=== PATIENT | male | born 1990 | race Caucasian/White ===

== ENCOUNTER → 2016-08-11 | Outpatient (CLI) | payer SELFPAY | LOC: EMS 23:03 | DX: Z53.20 Procedure and treatment not carried out because of patient's decision for unspecified reasons (principal) ==

== ENCOUNTER 2016-08-12 21:41 | Emergency (ER) | payer MEDICAID ==
[~2016-08-12] VITALS: Ht 182.9 cm; Wt 68.1 kg
[2016-08-12] MEDS ORDERED: PROPARACAINE 0.5% OD ONE (22:00)
[2016-08-12] MEDS ORDERED: FLUORESCEIN (FLUOR-I-STRIPS) 1 MG STRIP OD ONE (22:00)
[2016-08-12] MEDS ORDERED: FLUORESCEIN (FLUOR-I-STRIPS) 1 MG STRIP ONE (22:03)
[2016-08-12] MEDS ORDERED: ERYTHROMYCIN 0.5% OPHTHALMIC OINTMENT 1 GM TUBE OD ONE (22:25)
[2016-08-12 22:47] VITALS: BP 120/74
== END 2016-08-12 22:48 | disposition home or self-care (01) ==
LOC: ED 21:43
DX: T15.02XA Foreign body in cornea, left eye, initial encounter (principal); W22.8XXA Striking against or struck by other objects, initial encounter; Y92.63 Factory as the place of occurrence of the external cause; Y99.0 Civilian activity done for income or pay
CPT/HCPCS: 99283; A9270; 65220

== ENCOUNTER 2016-08-13 02:17 | Emergency (ER) | payer MEDICAID ==
[~2016-08-13] VITALS: Ht 182.9 cm; Wt 68.1 kg
--- NOTE | 2016-08-13 02:29 | NUR ---
NOT ABLE TO DO VISUAL ACUITY THIS TIME D/T PT CRYING AND NOT ABLE TO OPEN EYE W/O PAIN
[2016-08-13] MEDS ORDERED: KETOROLAC 60 MG/2 ML (TORADOL) VIAL IM ONE (02:35)
[2016-08-13] MEDS ORDERED: PROPARACAINE 0.5% OD ONE (02:35)
[2016-08-13] MEDS ORDERED: DICLOFENAC 0.1% OD ONE (02:40)
[2016-08-13] MEDS ORDERED: PROMETHAZINE 25 MG/ML (PHENERGAN) 1 ML VIAL IM ONE (02:50)
[2016-08-13] MEDS ORDERED: HYDROmorphone 1 MG/ML (DILAUDID) SYRINGE IM ONE (02:50)
--- NOTE | 2016-08-13 03:18 | NUR ---
PATIENT SLEEPING AT BEDSIDE
--- NOTE | 2016-08-13 03:18 | NUR ---
DILAUDID AND PHENERGAN GIVEN IM SO NO START STOP TIMES FOR IV
[2016-08-13] MEDS ORDERED: ED- HYDROcodone/ACETAMINOPHEN 5MG/325MG (NORCO) 6 TABLETS/BTL PO ONE (03:45)
[2016-08-13 04:05] VITALS: BP 116/62
--- NOTE | 2016-08-13 04:06 | NUR ---
ENC IMPORTANCE OF NOT RUBBING EYE TO BOTH THE PATIENT AND HIS .
== END 2016-08-13 04:06 | disposition home or self-care (01) ==
LOC: ED 02:18
DX: S05.02XA Injury of conjunctiva and corneal abrasion without foreign body, left eye, initial encounter (principal); W22.8XXA Striking against or struck by other objects, initial encounter; Y92.63 Factory as the place of occurrence of the external cause; Y99.0 Civilian activity done for income or pay
CPT/HCPCS: 96372; 99283; A9270; J1170; J1885; J2550

== ENCOUNTER 2016-08-13 10:56 | Emergency (ER) | payer MEDICAID ==
[~2016-08-13] VITALS: Ht 182.9 cm; Wt 68.1 kg
[2016-08-13] MEDS ORDERED: FLUORESCEIN (FLUOR-I-STRIPS) 1 MG STRIP OS ONE (11:15)
[2016-08-13] MEDS ORDERED: EYE WASH 120 ML BTL OD ONE (11:25)
[2016-08-13 19:00] VITALS: BP 130/67
== END 2016-08-13 11:58 | disposition home or self-care (01) ==
LOC: ED 10:57
DX: S05.02XA Injury of conjunctiva and corneal abrasion without foreign body, left eye, initial encounter (principal); W22.8XXA Striking against or struck by other objects, initial encounter; Y92.63 Factory as the place of occurrence of the external cause; Y99.0 Civilian activity done for income or pay
CPT/HCPCS: 99283; A9270; 99282

== ENCOUNTER 2016-08-24 15:47 | Emergency (ER) | payer MEDICAID ==
[~2016-08-24] VITALS: Ht 182.9 cm; Wt 68.0 kg
[2016-08-24 16:28] LABS: BASOPHILS % (AUTO) 0 % (0-2); EOSINOPHILS % (AUTO) 0 % (0-4); LYMPHOCYTES # (AUTO) 1.4 X10^3; MEAN CORPUSCULAR HEMOGLOBIN 33.6 PG (26.0-34.0); MEAN CORPUSCULAR HGB CONC 36.6 g/dL (31.0-37.0); MEAN CORPUSCULAR VOLUME 92 FL (80-100); MEAN PLATELET VOLUME 9.2 FL (6.0-9.5); MONOCYTES # (AUTO) 0.4 X10^3; MONOCYTES % (AUTO) 8 % (3-11); NEUTROPHILS # (AUTO) 3.4 X10^3; NEUTROPHILS % (AUTO) 64 % (51-67); PLATELET COUNT 190 10^3uL (150-450); WHITE BLOOD COUNT 5.22 10^3uL (4.0-11.0)
[2016-08-24 16:35] LABS: BILIRUBIN,URINE Negative (Negative); COLOR,URINE Yellow; GLUCOSE, URINE (UA) Negative (Negative); LEUKOCYTE ESTERASE ,URINE Negative (Negative); PH,URINE 8.5 (5.0 - 8.0)
[2016-08-24 16:36] LABS: CLARITY,URINE Cloudy
[2016-08-24 16:39] LABS: ALBUMIN 4.6 g/dL (3.4-5.0); ALKALINE PHOSPHATASE 82 U/L (38-126); ANION GAP 14.4 MEQ/L (3-15); BUN/CREATININE RATIO 16 (10-20); CALCULATED IONIZED CALCIUM 3.9 mg/dL (3.8-4.6); TOTAL PROTEIN 7.6 g/dL (6.4-8.5)
[2016-08-24 16:49] LABS: AMORPHOUS SEDIMENT,UR 4+ /HPF; RBC,URINE None Seen /HPF; URINE CENTRIFUGED VOLUME 12 mL
[2016-08-24 16:50] LABS: AMPHETAMINE SCREEN, URINE Negative (Negative); CANNABINOID SCREEN, URINE Negative (Negative); METHAMPHETAMINE SCREEN URINE S NEGATIVE (NEGATIVE); OPIATE SCREEN URINE Negative (Negative); PROPOXYPHENE STAT NEGATIVE (NEGATIVE)
--- NOTE | 2016-08-24 16:59 | NUR ---
PAM PARKER (SHELDON) CALLED FOR CODE TO TELE-SCREEN PT. SHELDON HAD CALLED DAIRY TRUCK DRIVER OF PT TO INFORM THIS RN THAT PT HAD CALLED & HE TALKED TO HIM AT LONG LENGTH. SHELDON STATES THAT HE IS "VERY WORRIED ABOUT HIM" AND "HE IS SUICIDAL WITH A PLAN & NEEDS IN-PT TX". HE CONTINUES THAT HE HAD BEEN AT [facility] FOR "BRIEF STAY". SHELDON STATES [facility] IS FULL & UNABLE TO TAKE PT. "IF [facility] OR [facility] ARE UNABLE TO TAKE PT, CALL ME BACK." PT STATES HE DOES NOT WANT TO GO TO [facility] "THERE ARE BAD PEOPLE THERE" BUT OK WITH GOING TO [facility]. CL
--- NOTE | 2016-08-24 17:20 | NUR ---
[facility] weed control inspector psychologist called re poss tsf to their facility after being medically cleared here. cl
--- NOTE | 2016-08-24 18:18 | NUR ---
CAYLA MILLER SENT BACK ADMIT PAPERWORK & THEIR NURSE WILL CALL US BACK FOR NURSE TO NS REPORT. MARIANO SHARMA SWEDISH MASSEUSE STATES SHE DOES NOT NEED TO HAVE DOCTOR TO DOCTOR CALL. CL
[2016-08-24 19:33] VITALS: BP 88/44
== END 2016-08-24 18:54 ==
LOC: ED 15:49
DX: F33.2 Major depressive disorder, recurrent severe without psychotic features (principal)
CPT/HCPCS: 36415; 80053; 80177; 81003; 81015; 84443; 85025; 99283; G0478; G0480; 80307; 80320; 80329

== ENCOUNTER → 2016-08-24 | Outpatient (CLI) | payer MEDICAID | LOC: EMS 15:45 | PROVIDERS: ATTEND Psychiatry & Neurology Psychiatry | DX: R45.851 Suicidal ideations (principal) ==

== ENCOUNTER 2016-09-04 19:09 | Emergency (ER) | payer MEDICAID ==
[~2016-09-04] VITALS: Ht 182.9 cm; Wt 69.5 kg
[~2016-09-04 19:09] MED LIST changes: -QTP25T PO; -QUET200T2 PO; -SERT25TA PO; -TRAZ100T92 PO
--- OUTSIDE RECORDS SUMMARY | 2016-09-04 19:12 | XMS REPORT ---
Author Author GENERATED, SYSTEM Organization Unknown Address Unknown Phone Unavailable Care Team Providers Care Dental Resident Name Role Phone PP Unavailable Reason For Visit Reason for Visit from 04/22/2016 2:15 PM:Pt Stated Reason for Adm : OD on pillsReason for Visit from 04/22/2016 12:44 PM:Pt Stated Reason for Adm : "to get help with my anger" Chief Complaint UNSPECIFIED DEPRESSION Social History Social History from 04/24/2016 11:27 AM:Tobacco Use? : Current Everyday SmokerSocial History from 04/22/2016 2:15 PM:Tobacco Use? : Current Everyday SmokerSocial History from 04/22/2016 12:44 PM:Tobacco Use? : Current Everyday Smoker Functional Status Functional Status from 04/24/2016 8:30 AM:LOC : AlertOriented To : Person,Place, TimeWeight Bearing Status : FullAssist Level : Independent# Assists : IndependentFunctional Status from 04/23/2016 8:05 PM:LOC : AlertOriented To : Person,Place,Time,EventWeight Bearing Status : FullAssist Level : Independent# Assists : IndependentFunctional Status from 04/23/2016 9:00 AM:LOC : AlertOriented To : Person,Place,Time,EventWeight Bearing Status : FullAssist Level : Independent# Assists : IndependentFunctional Status from 04/22/2016 9: 30 PM:LOC : AlertOriented To : Person,Place,Time,EventWeight Bearing Status : FullAssist Level : Independent# Assists : IndependentFunctional Status from 12:44 PM:LOC : AlertOriented To : Person,Place,Time,EventWeight Bearing Status : FullAssist Level : Independent# Assists : Independent Vital Signs Hospital Vital Signs from 04/24/2016 7:16 AM:Weight : 63.1/ kgHeight : 5/8 ft, inTemperature : 98.1 FPulse : 58Respirations : 18BP : 104/53Hospital Vital Signs from 04/23/2016 9:12 AM:Height : 5/8 ft,inHospital Vital Signs from 2015 7:03 AM:Height : 5/8 ft,inTemperature : 97.9 FPulse : 67Respirations : 18BP : 100/51Hospital Vital Signs from 04/22/2016 9:47 PM:Height : 5/8 ft, inTemperature : 98.5 FPulse : 82Respirations : 18BP : 125/76Hospital Vital Signs from 04/22/2016 12:44 PM:Weight : 66.1/ kgHeight : 5/8 ft,inHospital Vital Signs from 04/22/2016 12:29 PM:Weight : 66.1/ kgHeight : 6/0 ft, inTemperature : 99.5 FPulse : 83Respirations : 18BP : 120/54 Results Chemistry from 04/23/2016 6:19 AMGLUCOSE (FASTING) 87 MG/DL (65-99 MG/DL) Problems Encounter Diagnosis Altered Mental Status Status:Active. Additional Problems Drug Overdose Comment:Problem resolved by [facility] upon Discharge, Status:Resolved. Fall Risk Comment:Problem resolved by [facility] upon Discharge, Status:Resolved. Seizure Comment:Problem resolved by [facility] upon Discharge, Status:Resolved. Encounters Encounter Diagnosis Altered Mental Status Status:Active. Plan of Care Follow-up Appointments from 04/24/2016 11:27 AM:#1 Office appointment: : Initial Intake and therapy-Vladimir Melton-with Alyce Root#1 Date/Time : 04/27 12:30 PMAddress # 1 : [phone] Office appointment: : Dr. Wang#2 Date/Time : 05/26/2016 10:45 AMAddress # 2 : [facility]: [address], [place]- or Procedures No relevant procedures performed. Immunizations No immunizations administered or ordered. Hospital Course Hospital Discharge Instructions How to care for yourself at home from 04/24/2016 11:27 AM:Discharge Activity : Activity as tolerated,Do not engage in sports, heavy work or heavy lifting until your physician gives permissionDo not drive or operate machinery for: : No driving until release from Dr Wu Diet : As before hospitalizationCall your doctor if: : Fever over 101 F or severe chills,Chest pain or other unexplained symptoms,Tingling or numbness develops,A sudden increase or decrease in weight,You have persistent or worsening symptoms Allergies, Adverse Reactions, Alerts No Latex Allergy.No IV Contrast Allergy.No Known Drug Allergies. Medication It is the responsibility of the patient or patient independent sales representative to confirm the list of medications with either the patient's personal care provider or the patient's follow-up care provider to ensure the patient has an appropriate list of medications to take at home. Discharge medicationsNew medicationsnicotine (polacrilex) (Nicorelief) 2 mg Gum , Ordered By: CATHY ALVARADO, LUCITA Directions: 1 gum oral daily for SMOKING CESSATION Additional Instructions: DO NOT GIVE IF PATIENT UNDER AGE 18 OR . Continued medicationslevetiracetam (KePPRA) 500 mg Tablet, Ordered By: CATHY ALVARADO, PAC Directions: 1 tablet oral twice a day for seizures Stopped medicationsNone
--- OUTSIDE RECORDS SUMMARY | 2016-09-04 19:14 | XMS REPORT ---
Author Author GENERATED, SYSTEM Organization Unknown Address Unknown Phone Unavailable Care Team Providers Care Silk Worker Name Role Phone PP Unavailable Reason For [...] : 04/27 12:30 PMAddress # 1 : [phone] Office appointment: : Dr. Wang#2 Date/Time : 05/26/2016 10:45 AMAddress # 2 : [facility]: [address], [place]- or Procedures No relevant procedures performed. Immunizations [...] the responsibility of the patient or patient sales development representative to confirm the list of medications [...]
[2016-09-04] MEDS ORDERED: SERT25TA PO (19:18)
[2016-09-04] MEDS ORDERED: QTP25T PO (19:18)
[2016-09-04] MEDS ORDERED: TRAZ100T92 PO (19:18)
[2016-09-04 19:48] LABS: BASOPHILS % (AUTO) 0 % (0-2); EOSINOPHILS % (AUTO) 1 % (0-4); LYMPHOCYTES # (AUTO) 1.2 X10^3; MEAN CORPUSCULAR VOLUME 93 FL (80-100); MEAN PLATELET VOLUME 9.4 FL (6.0-9.5); MONOCYTES # (AUTO) 0.4 X10^3; MONOCYTES % (AUTO) 6 % (3-11); NEUTROPHILS # (AUTO) 6.2 X10^3; NEUTROPHILS % (AUTO) 78 % (51-67); PLATELET COUNT 162 10^3uL (150-450); WHITE BLOOD COUNT 7.88 10^3uL (4.0-11.0)
[2016-09-04 20:04] LABS: ANION GAP 16.4 MEQ/L (3-15); MEAN CORPUSCULAR HEMOGLOBIN 33.1 PG (26.0-34.0); MEAN CORPUSCULAR HGB CONC 35.6 g/dL (31.0-37.0)
--- NOTE | 2016-09-04 20:08 | Diagnostic Imaging Report ---
INDICATION: 26-year-old male with cough COMPARISON: 04/05/02 FINDINGS: PA and lateral films of the chest show normal heart, pulmonary vasculature, pleura and diaphragms with no focal opacities. There is questionable mild prominence of central lung markings with some minimal peribronchial cuffing. Soft tissues and bony thorax are normal. IMPRESSION: Mild central reactive airway changes such as mild bronchitis/asthma, with associated hyperexpanded lungs suggesting air-trapping. There are no consolidations. Dictated by: Dictated on workstation # [id number]
[2016-09-04 20:22] VITALS: BP 107/74
== END 2016-09-04 20:25 | disposition home or self-care (01) ==
LOC: ED 19:10
DX: J40 Bronchitis, not specified as acute or chronic (principal); J06.9 Acute upper respiratory infection, unspecified; F17.210 Nicotine dependence, cigarettes, uncomplicated
CPT/HCPCS: 36415; 71020; 80048; 85025; 93005; 99283; 99284

== ENCOUNTER → 2016-09-04 | Outpatient (CLI) | payer MEDICAID ==
[~2016-09-04] MED LIST: AMOX1TAB12 PO; LEVE500T PO; QTP25T PO; QUET200T2 PO; SERT25TA PO; TRAZ100T92 PO
[2016-09-04 11:22] VITALS: BP 117/68
--- NOTE | 2016-09-04 11:22 | Urgent Care T Sheet Gen (E) ---
Intake General Temperature (Fahrenheit): 98.3 Pulse: 83 Blood Pressure Systolic: 117 Blood Pressure Diastolic: 68 Respirations: 20 Description of Symptoms Patient presents with illness x 1 week. Notes sinus congestion and chest congestion. Productive cough all throughout the day. No fever. Been taking DayQuil and cough drops without lasting relief. History of Present Illness Allergies: Coded Allergies: No Known Allergies (Verified Allergy, Unknown, 08/13/16) Home Meds Active Scripts Amoxicillin/Clavulanate Potassium (Augmentin 875mg/125mg)1 Each Tablet1 Tab PO BID #20 TAB Ref 0 Prov:TRISTA BUSCH 09/04/16 Reported Medications Levetiracetam (Keppra)500 Mg Sza457 Mg PO BID 05/02/16 Respiratory Constitutional Symptoms: Malaise EENTM: Nose Congestion Respiratory: Cough Cardiovascular: No symptoms reported Gastrointestinal/Abdominal: No symptoms reported All Other Systems Reviewed Remaining Systems: All other systems reviewed with negative findings Past Qcbwnnk-Ejovxa-Lsnqcb Hx Patient's Social History Alcohol Use: Past History Smoking Status: Heavy tobacco smoker 10+ Recent foreign travel: No Surgeries/Hospitalizations Hospitalization/Surgery Hx: MULTIPLE HOSPITALIZATIONS FOR OVERDOSE. Respiratory Respiratory History: None Cardiovascular Cardiovascular History: [place] (Heart Attack) Comment: PT STATES THAT HE HAD A HEART ATTACK AT AGE 17 Reproductive System Sexually Transmitted Diseases: No Gastrointestinal GI/Endocrine History: Other, see comment Comment: LIVER PROBLEMS AFTER OVERDOSE OF TYLENOL 2014 Diabetes Diabetes: No HEENT Impaired Vision: Glasses Hearing Impaired: None Psychosocial Behavior Disorders: Anxiety, Depression, Stress, Suicide Attempt Physical Exam Physical Exam General Appearance: WD/WN No apparent distress Eyes, Ears, Nose, Throat Ex: TMs normal Pharyngeal erythema (thick PND; cobblestone appearance) Other (red, swollen nasal turbinates with purulent drainage) Neck Exam: SuppleNo Lymphadenopathy Respiratory Exam: Lungs clear Normal breath sounds Cardiovascular Exam: Regular rate, rhythm Departure Urgent Care Impression Impression: Primary Impression: Sinusitis Qualified Code: J01.00 - Acute maxillary sinusitis, unspecified Departure Disposition: HOME OR SELF-CARE Condition: Stable Additional Instructions: I have started the patient on Augmentin for his sinus infection. The patient asked if water splashed onto his face could have caused his sinus infection. I said it wasn't likely. Rest. Fluids Mucinex as needed for cough and congestion. His lungs were clear so most likely his cough is due to drainage Return as needed Patient understands DC instructions. All questions were answered. Scripts Amoxicillin/Clavulanate Potassium (Augmentin 875mg/125mg)1 Each Tablet1 Tab PO BID #20 TAB Ref 0 Prov:TRISTA BUSCH 09/04/16 End of report . TRISTA BUSCH Sep 04, 2016 10:35
== END ==
LOC: MHUC 10:12
PROVIDERS: ATTEND Physician Assistant
DX: J01.00 Acute maxillary sinusitis, unspecified (principal)
CPT/HCPCS: 99213

== ENCOUNTER 2016-09-06 21:11 | Emergency (ER) | payer MEDICAID ==
[~2016-09-06] VITALS: Ht 185.4 cm; Wt 84.9 kg
[~2016-09-06 21:11] MED LIST changes: -QUET200T2 PO
--- OUTSIDE RECORDS SUMMARY | 2016-09-06 21:17 | XMS REPORT ---
Author Author GENERATED, SYSTEM Organization Unknown Address Unknown Phone Unavailable Care Team Providers Care Purchaser Name Role Phone PP Unavailable Reason For [...] : 04/27 12:30 PMAddress # 1 : [phone] Office appointment: : Dr. Wang#2 Date/Time : 05/26/2016 10:45 AMAddress # 2 : [facility]: [address], [place]- or Procedures No relevant procedures performed. Immunizations [...] the responsibility of the patient or patient ict sales representative to confirm the list of [...]
--- NOTE | 2016-09-06 21:50 | NUR ---
patient is unresponsive after arriving via EMS.
[2016-09-06] MEDS ORDERED: QUET200T2 PO (21:53)
[2016-09-06 21:54] LABS: BASOPHILS % (AUTO) 0 % (0-2); EOSINOPHILS # (AUTO) 0.1 10^3uL; EOSINOPHILS % (AUTO) 1 % (0-4); MEAN CORPUSCULAR VOLUME 93 FL (80-100); MEAN PLATELET VOLUME 9.1 FL (6.0-9.5); MONOCYTES # (AUTO) 0.4 X10^3; MONOCYTES % (AUTO) 5 % (3-11); NEUTROPHILS # (AUTO) 6.6 X10^3; NEUTROPHILS % (AUTO) 73 % (51-67); PLATELET COUNT 164 10^3uL (150-450); WHITE BLOOD COUNT 9.12 10^3uL (4.0-11.0)
[2016-09-06 21:56] LABS: MEAN CORPUSCULAR HEMOGLOBIN 33.2 PG (26.0-34.0); MEAN CORPUSCULAR HGB CONC 35.9 g/dL (31.0-37.0)
[2016-09-06 22:04] LABS: ALBUMIN 4.3 g/dL (3.4-5.0); ANION GAP 20.9 MEQ/L (3-15); CALCULATED IONIZED CALCIUM 3.6 mg/dL (3.8-4.6); TOTAL PROTEIN 7.3 g/dL (6.4-8.5)
--- NOTE | 2016-09-06 22:41 | NUR ---
REPORT TAKEN FROM Chelle FRANKS AND ACCEPTED CARE OF PT
[2016-09-06] MEDS ORDERED: SODIUM CHLORIDE FLUSH 10 ML SYR IV PRN (22:45)
[2016-09-06] MEDS ORDERED: SODIUM CHLORIDE FLUSH 3 ML SYR IV ONE (22:45)
--- NOTE | 2016-09-06 23:52 | NUR ---
Rounded on pt, he continues to rest with eyes closed, resp are easy and nonlabored, skin warm and dry, no seizure activity noted.
--- NOTE | 2016-09-07 01:58 | NUR ---
Pt resting with eyes closed, resp are easy and non labored at this time
--- NOTE | 2016-09-07 03:13 | NUR ---
Pt contiunes to rest at this time
--- NOTE | 2016-09-07 03:30 | NUR ---
Pt awake, asks what happened and how did he get here, explained to pt how he got to the ed and that he has been sleeping ever since he got here. Pt up to the BR and voided, tolerates being up ok. Pt states that he really wants to go home.
--- NOTE | 2016-09-07 03:45 | NUR ---
awake wanting to go home pt confused as to where he was, oriented easily when told him he was at [facility]. Keeps saying he drank to much and is worried about girlfriend
--- NOTE | 2016-09-07 03:50 | NUR ---
Dr. Solomon in to see pt, ok's for pt to go home.
[2016-09-07 04:11] VITALS: BP 110/68
== END 2016-09-07 04:00 | disposition home or self-care (01) ==
LOC: EDUNIT# 21:11 → ED 21:12
DX: F10.129 Alcohol abuse with intoxication, unspecified (principal); Y90.6 Blood alcohol level of 120-199 mg/100 ml; R56.9 Unspecified convulsions
CPT/HCPCS: 36415; 80053; 83690; 85025; 96360; 99285; G0480; J7030; 80320; 99282

== ENCOUNTER → 2016-09-06 | Outpatient (CLI) | payer MEDICAID ==
[~2016-09-06] MED LIST changes: +QTP25T PO; +QUET200T2 PO; +SERT25TA PO; +TRAZ100T92 PO
== END ==
LOC: EMS 21:10
PROVIDERS: ATTEND Emergency Medicine
DX: R56.9 Unspecified convulsions (principal); R41.82 Altered mental status, unspecified

== ENCOUNTER 2016-09-29 22:01 | Emergency (ER) | payer MEDICAID ==
[~2016-09-29] VITALS: Ht 185.4 cm; Wt 68.2 kg
[~2016-09-29 22:01] MED LIST changes: +QUET200T2 PO
[2016-09-29 22:05] VITALS: BP 122/76
--- OUTSIDE RECORDS SUMMARY | 2016-09-29 22:05 | XMS REPORT ---
Author Author GENERATED, SYSTEM Organization Unknown Address Unknown Phone Unavailable Care Team Providers Care Frozen Pie Maker Name Role Phone PP Unavailable Reason For [...] : 04/27 12:30 PMAddress # 1 : [phone] Office appointment: : Dr. Wang#2 Date/Time : 05/26/2016 10:45 AMAddress # 2 : [facility]: [address], [place]- or Procedures No relevant procedures performed. Immunizations [...] the responsibility of the patient or patient printing sales representative to confirm the list of [...]
--- OUTSIDE RECORDS SUMMARY | 2016-09-29 22:06 | XMS REPORT ---
Author Author GENERATED, SYSTEM Organization Unknown Address Unknown Phone Unavailable Care Team Providers Care Hand Stonecutter Name Role Phone PP Unavailable Reason For [...] : 04/27 12:30 PMAddress # 1 : [phone] Office appointment: : Dr. Wang#2 Date/Time : 05/26/2016 10:45 AMAddress # 2 : [facility]: [address], [place]- or Procedures No relevant procedures performed. Immunizations [...] the responsibility of the patient or patient outside medical sales representative to confirm the list of [...]
[2016-09-29] MEDS ORDERED: SERT50TA PO (22:36)
[2016-09-29] MEDS ORDERED: NF-TORA10 PO (23:22)
== END 2016-09-29 23:27 | disposition home or self-care (01) ==
LOC: ED 22:02
DX: J02.9 Acute pharyngitis, unspecified (principal)
CPT/HCPCS: 87070; 87651; 99282; 99283

== ENCOUNTER 2016-10-15 23:38 | Emergency (ER) | payer MEDICAID ==
[~2016-10-15] VITALS: Ht 182.9 cm; Wt 65.0 kg
[~2016-10-15 23:38] MED LIST changes: +NF-TORA10 PO; +SERT50TA PO
--- OUTSIDE RECORDS SUMMARY | 2016-10-15 23:43 | XMS REPORT ---
Author Author GENERATED, SYSTEM Organization Unknown Address Unknown Phone Unavailable Care Team Providers Care Chemical Pathologist Name Role Phone PP Unavailable Reason For [...] : 04/27 12:30 PMAddress # 1 : [phone] Office appointment: : Dr. Wang#2 Date/Time : 05/26/2016 10:45 AMAddress # 2 : [facility]: [address], [place]- or Procedures No relevant procedures performed. Immunizations [...] the responsibility of the patient or patient event representative to confirm the list of medications [...]
--- OUTSIDE RECORDS SUMMARY | 2016-10-15 23:45 | XMS REPORT ---
Author Author GENERATED, SYSTEM Organization Unknown Address Unknown Phone Unavailable Care Team Providers Care Push Button Switch Assembler Name Role Phone PP Unavailable Reason For [...] : 04/27 12:30 PMAddress # 1 : [phone] Office appointment: : Dr. Wang#2 Date/Time : 05/26/2016 10:45 AMAddress # 2 : [facility]: [address], [place]- or Procedures No relevant procedures performed. Immunizations [...] the responsibility of the patient or patient access services representative to confirm the list of medications [...]
[2016-10-16 00:40] LABS: BASOPHILS % (AUTO) 0 % (0-2); EOSINOPHILS % (AUTO) 1 % (0-4); LYMPHOCYTES # (AUTO) 1.9 X10^3; MEAN CORPUSCULAR VOLUME 92 FL (80-100); MONOCYTES # (AUTO) 0.4 X10^3; MONOCYTES % (AUTO) 7 % (3-11); NEUTROPHILS # (AUTO) 4.2 X10^3; NEUTROPHILS % (AUTO) 64 % (51-67); PLATELET COUNT 251 10^3uL (150-450); WHITE BLOOD COUNT 6.59 10^3uL (4.0-11.0)
[2016-10-16 00:42] LABS: BILIRUBIN,URINE Negative (Negative); CLARITY,URINE Clear; COLOR,URINE Yellow; GLUCOSE, URINE (UA) Negative (Negative); LEUKOCYTE ESTERASE ,URINE Negative (Negative); UROBILINOGEN,URINE 0.2 mg/dL (0.2-1.0)
[2016-10-16 00:43] LABS: MEAN CORPUSCULAR HEMOGLOBIN 32.9 PG (26.0-34.0); MEAN CORPUSCULAR HGB CONC 35.9 g/dL (31.0-37.0)
[2016-10-16 00:51] LABS: ALBUMIN 4.9 g/dL (3.4-5.0); ANION GAP 16.3 MEQ/L (3-15); CALCULATED IONIZED CALCIUM 3.7 mg/dL (3.8-4.6); TOTAL PROTEIN 8.5 g/dL (6.4-8.5)
[2016-10-16] MEDS ORDERED: PHEN26CR RC (01:14)
[2016-10-16] MEDS ORDERED: LORA10TA76 PO (01:14)
[2016-10-16] MEDS ORDERED: POLY17PO6 PO (01:14)
[2016-10-16 01:25] VITALS: BP 124/85
== END 2016-10-16 01:20 | disposition home or self-care (01) ==
LOC: ED 23:40
DX: K92.1 Melena (principal); J30.2 Other seasonal allergic rhinitis
CPT/HCPCS: 36415; 80053; 81003; 83690; 85025; 86140; 99283